=== PATIENT | female | born 1955 | race Caucasian/White ===

== ENCOUNTER → 2019-02-05 | Outpatient (CLI) | payer OTHER ==
--- NOTE | 2019-02-05 16:20 | KCIC ---
MR of the right hip HISTORY: Right hip pain for one week. TECHNIQUE: Routine multiplanar sequences are obtained. FINDINGS: No bone lesion, acute fracture, marrow edema or femoral head osteonecrosis. No significant joint effusion. No advanced DJD. No evidence of labral tear or para labral cyst. Gluteus minimus and medius tendons are intact. Hamstring tendon intact. Iliopsoas tendon intact. Rectus femoris tendon intact. Mild intramuscular edema within the anterior gluteus minimus and medius muscles. Large [id number] coronal survey sequence demonstrates no acute findings at the contralateral hip or elsewhere in the [id number]. IMPRESSION: 1. Mild intramuscular edema involving the anterior right gluteus minimus and medius, could indicate a strain or contusion. 2. No internal derangement at the right hip. Electronically signed by: Jose Swanson MD (02/05/2019 4:17 PM) [id number]
== END | disposition home or self-care (01) ==
LOC: KCIC MRI 15:09
DX: M25.461 Effusion, right knee (principal); Z90.710 Acquired absence of both cervix and uterus
CPT/HCPCS: 73721